=== PATIENT | female | born 1985 | race Caucasian/White ===

== ENCOUNTER 2018-11-03 18:31 | Emergency (ER) | payer OTHER | END 2018-11-03 21:55 | disposition home or self-care (01) | LOC: JER 18:31 ==

== ENCOUNTER 2020-10-05 06:24 | Emergency (ER) | payer OTHER ==
[2020-10-05 06:35] VITALS: BMI 26.5
[2020-10-05] MEDS ORDERED: ONDANSETRON 4 MG/2 ML VIAL IVPUSH ONE (07:12)
[2020-10-05 07:18] LABS: RBC 4.79 M/mm3 (3.60-5.2)
[2020-10-05 07:20] LABS: HEMATOCRIT 42.2 % (32.4-45.2); HEMOGLOBIN 14.2 GM/dl (10.7-15.3); LYMPH % 25.8 % (8-40); MCH 29.6 pg (25.7-33.7); MCHC 33.5 g/dl (32.0-36.0); MEAN CELL VOLUME 88.2 fl (80-96); MEAN PLT VOLUME 8.2 fl (7.5-11.1); MONO % 7.5 % (3.8-10.2); NEUT % 62.7 % (42.8-82.8); PLATELET COUNT 292 K/MM3 (134-434); RDW 12.4 % (11.6-15.6); WHITE BLOOD COUNT 7.1 K/mm3 (4.0-10.8)
[2020-10-05] MEDS ORDERED: ONDANSETRON 4 MG/2 ML VIAL ONE (07:26)
[2020-10-05 07:36] LABS: ALBUMIN 4.3 g/dl (3.4-5.0); BILIRUBIN,TOTAL 0.9 mg/dl (0.2-1); CALCIUM 9.2 mg/dl (8.5-10); CREATININE 0.7 mg/dl (0.55-1.3); TOT PROT 7.2 g/dl (6.4-8.2)
[2020-10-05] MEDS ORDERED: KETOROLAC TROMETHAMINE 15 MG/ML VIAL IVPUSH ONE (07:51)
[2020-10-05] MEDS ORDERED: KETOROLAC TROMETHAMINE 15 MG/ML VIAL ONE (08:00)
[2020-10-05 08:32] LABS: HCG,QUALITATIVE URINE Negative
[2020-10-05] MEDS ORDERED: ACETAMINOPHEN 1000 MG/100 ML VIAL (NON FORMULARY) IVPB ONE (10:15)
[2020-10-05] MEDS ORDERED: ACETAMINOPHEN INJECTION 100 ML IVPB ONE (10:21)
[2020-10-05] MEDS ORDERED: SODIUM CHLORIDE 0.9% 500 ML INFUS.BAG IV ONE (11:30)
[2020-10-05 11:36] VITALS: TEMP 98.7
[2020-10-05 12:49] VITALS: BP 103/62; PULSE 82
== END 2020-10-05 13:18 | disposition home or self-care (01) ==
LOC: FER 06:24
PROC: 3E033NZ Introduction of Analgesics, Hypnotics, Sedatives into Peripheral Vein, Percutaneous Approach (ICD-10-PCS; principal; 2020-10-05)
PROC: 3E0333Z Introduction of Anti-inflammatory into Peripheral Vein, Percutaneous Approach (ICD-10-PCS; 2020-10-05)
PROC: 3E033GC Introduction of Other Therapeutic Substance into Peripheral Vein, Percutaneous Approach (ICD-10-PCS; 2020-10-05)
DX: R10.9 Unspecified abdominal pain (principal)
CPT/HCPCS: 36415; 76830-TC; 80053; 81003; 84703; 85025; 99285-25; J0131